=== PATIENT | female | born 1945 | race Caucasian/White ===

== ENCOUNTER → 2017-08-25 | Outpatient (CLI) | payer MEDICARE ==
[~2017-08-25] MED LIST: DIPHENHYDRAMINE 50 MG/ML, 1ML ONE; OMNIPAQUE 350 MG/ML, 100ML BOTTLE ONE
== END | disposition home or self-care (01) ==
LOC: RAD 13:52 → EDBD 14:30
PROVIDERS: ATTEND Nurse Practitioner Family
DX: K42.9 Umbilical hernia without obstruction or gangrene (principal); R18.8 Other ascites
CPT/HCPCS: 74177; J1200; Q9967

== ENCOUNTER 2017-09-12 12:02 | Emergency (ER) | payer MEDICARE ==
[~2017-09-12] VITALS: Ht 172.7 cm; Wt 78.2 kg
[2017-09-12 13:43] LABS: HEMOGLOBIN 13.5 g/dL (11.7-16.4); WHITE BLOOD COUNT 9.6 x10^3/uL (3.4-10)
[2017-09-12 13:48] LABS: BLOOD UREA NITROGEN 8 mg/dL (7-18)
[2017-09-12 13:49] LABS: ASPARTATE AMINO TRANSFERASE 13 U/L (15-37)
[2017-09-12] MEDS ORDERED: SODIUM CHLORIDE FLUSH 10ML SYR IVF ONE (16:00)
[2017-09-12] MEDS ORDERED: LIDOCAINE 2%, 20ML ONE (16:17)
[2017-09-12 17:21] LABS: CYTOLOGY BODY FLUID RECD INTO PATHOLOGY; CYTOLOGY BODY FLUID SOURCE ASCITES FLUID
[2017-09-12 18:05] VITALS: BP 161/62
== END 2017-09-12 18:06 | disposition home or self-care (01) ==
LOC: ED 17:08
DX: R18.0 Malignant ascites (principal); C56.9 Malignant neoplasm of unspecified ovary
CPT/HCPCS: 36415; 49083; 49180; 71010; 76942; 80053; 82042; 83615; 85025; 87070; 87205; 88112; 88305; 88307; 89051; 93005; 99285; J3490

== ENCOUNTER 2017-10-06 17:26 | Emergency (ER) | payer MEDICARE ==
[~2017-10-06] VITALS: Ht 172.7 cm; Wt 80.7 kg
[2017-10-06 18:19] LABS: HEMOGLOBIN 12.2 g/dL (11.7-16.4); WHITE BLOOD COUNT 11.4 x10^3/uL (3.4-10)
[2017-10-06 18:32] LABS: BLOOD UREA NITROGEN 11 mg/dL (7-18)
[2017-10-06 18:33] LABS: ASPARTATE AMINO TRANSFERASE 10 U/L (15-37)
[2017-10-06 23:00] VITALS: BP 114/74
== END 2017-10-06 23:02 | disposition home or self-care (01) ==
LOC: ED 18:30
DX: C56.9 Malignant neoplasm of unspecified ovary (principal); R18.0 Malignant ascites; Z90.710 Acquired absence of both cervix and uterus
CPT/HCPCS: 36415; 49083; 80053; 82042; 83615; 85025; 87070; 87205; 89051; 99285

== ENCOUNTER → 2017-10-13 | Outpatient (CLI) | payer MEDICARE ==
[~2017-10-13] MED LIST changes: -DIPHENHYDRAMINE 50 MG/ML, 1ML ONE; +LIDOCAINE 1%, 20ML ONE; -OMNIPAQUE 350 MG/ML, 100ML BOTTLE ONE
== END | disposition home or self-care (01) ==
LOC: RAD 09:58
PROVIDERS: ATTEND Homeopath
DX: R18.8 Other ascites (principal); C56.9 Malignant neoplasm of unspecified ovary
CPT/HCPCS: 49083; J3490

== ENCOUNTER 2017-10-16 17:08 | Emergency (ER) | payer MEDICARE ==
[~2017-10-16] VITALS: Ht 172.7 cm; Wt 74.6 kg
[2017-10-16 19:27] LABS: HEMATOCRIT 42.1 % (34.6-47.8); HEMOGLOBIN 13.9 g/dL (11.7-16.4); WHITE BLOOD COUNT 11.7 x10^3/uL (3.4-10)
[2017-10-16 19:36] LABS: ASPARTATE AMINO TRANSFERASE 12 U/L (15-37); BLOOD UREA NITROGEN 11 mg/dL (7-18)
[2017-10-16 21:37] VITALS: BP 149/80
== END 2017-10-16 21:38 | disposition home or self-care (01) ==
LOC: ED 19:59
DX: R06.00 Dyspnea, unspecified (principal); Z85.43 Personal history of malignant neoplasm of ovary; Z90.710 Acquired absence of both cervix and uterus
CPT/HCPCS: 36415; 71010; 76705; 80053; 85025; 85610; 85730; 93005; 99285

== ENCOUNTER → 2017-10-28 | Outpatient (CLI) | payer MEDICARE ==
[~2017-10-28] MED LIST changes: -LIDOCAINE 1%, 20ML ONE; +LIDOCAINE 2%, 20ML ONE
== END ==
LOC: RAD 09:44
PROVIDERS: ATTEND Homeopath
DX: R18.8 Other ascites (principal)
CPT/HCPCS: 49083; J3490